=== PATIENT | female | born 1980 | race Caucasian/White ===

== ENCOUNTER 2020-06-06 13:16 | Emergency (ER) | payer OTHER, SELFPAY ==
--- NOTE | ~2020-06-06 | XR_ITS ---
EXAMINATION: XR chest 1V portable INDICATION: Cough TECHNIQUE: Portable AP chest at 1438 hours COMPARISON: None available FINDINGS: Patchy bilateral airspace opacities are present. There is no pleural effusion or pneumothor ax. The cardiomediastinal silhouette is normal. The visualized osseous structures are unremarkable. IMPRESSION: 1. Patchy bilateral airspace opacities, consistent with atelectasis versus pneumonia. Reviewed, dictated and finalized at location A. ROOM ATTENDANT IMPRESSION: 1. Patchy bilateral airspace opacities, consistent with atelectasis versus pneu monia.
[2020-06-06 13:27] VITALS: BP 151/76; PULSE 103; RESP 16; TEMP 36.2; O2SAT 98
--- NOTE | 2020-06-06 14:15 | ED.NAVMDI ---
HPI - Nausea/Vomiting/Diarrhea General Chief complaint: Nausea/Vomiting/Diarrhea Stated complaint: N/V BODY ACHES Time Seen by Provider: 06/06/20 14:15 History of Present Illness HPI Narrative: 39 yo female at 22 weeks presents to the ED for COVI-19 symptoms. She reports that she has had a few days of nausea, vomiting, diarrhea, cough, and chills. She does not have any known sick contacts. No fever, SOB, vaginal bleeding, discharge. Her OB is Dr. Mccarthy. Related Data Home Medications Medication Instructions Recorded Confirmed [id number]-[id number] cap 06/06/20 Allergies Allergy/AdvReac Type Severity Reaction Status Date / Time Penicillins Allergy Mild Hives / Verified 06/06/20 14:40 Red Face amoxicillin Allergy Unknown HIVES Verified 06/06/20 14:40 Review of Systems Review of Systems: All systems reviewed & are unremarkable except as noted in HPI and below Constitutional: Constitutional: Reports chills, Denies fever(s) and Denies weakness ENT: Denies sore throat Cardiovascular: Cardiovascular: Denies chest pain Respiratory: Respiratory: Reports cough and Denies dyspnea Gastrointestinal: Gastrointestinal: Denies abdominal pain, Reports diarrhea, Reports nausea and Reports vomiting Genitourinary: Genitourinary: Denies abnormal vaginal bleeding, Denies dysuria, Denies pelvic pain and Denies vaginal discharge Neurologic: Denies dizziness and Denies weakness [facility] Past Medical History Medical History (Updated 06/06/20 @ 18:41 by Ho Yousif MD) Obesity Social History Social History (Updated 06/06/20 @ 18:41 by Ho Yousif MD) Smoking status: Never smoker Exam Const: General: no acute distress and alert Nutritional Appearance: obese Orientation/consciousness: patient oriented x3 HENMT: Head: normal to inspection Resp: Effort & Inspection: normal respiratory effort Auscultation: clear to auscultation bilaterally Cardio: Rate: tachycardic Rhythm: regular rhythm GI: GI Palp: Yes Soft to palpation and No Tenderness to palpation present (GI) Skin: General skin exam: normal color Neuro: General: patient oriented x3, moves all extremities, no focal motor deficits and CN's II-XI intact bilaterally Speech: normal speech Gait exam (Neuro): Normal gait present Extrem: General: normal to inspection and no edema Course Vital Signs Vital signs: Vital Signs Temperature 36.2 C L 06/06/20 13:27 Pulse Rate 103 H 06/06/20 13:27 Respiratory Rate 16 06/06/20 13:27 Blood Pressure 151/76 H 06/06/20 13:27 Pulse Oximetry 98 06/06/20 13:27 Temperature 36.2 C L 06/06/20 13:27 Pulse Rate 88 06/06/20 16:11 Respiratory Rate 18 06/06/20 16:11 Blood Pressure 149/76 H 06/06/20 16:11 Pulse Oximetry 98 06/06/20 16:11 MDM - Nausea/Vomiting/Diarrhea MDM Narrative Medical decision making narrative: Patchy infiltrates on X-ray concerning for COVID-19. Testing sent. Vitals stable. Feeling improved after treatment. No indication for admission. Ob updated on patient condition. Medical Records Attestation: I reviewed the patient's medical records. Lab Data Attestation: I reviewed the patient's lab results. Result diagrams: 06/06/20 14:33 06/06/20 14:33 Labs: Lab Results 06/06/20 06/06/20 06/06/20 Range/Units 14:33 14:33 14:33 WBC 8.6 (4.5-10.0) K/mm3 RBC 4.07 L (4.2-5.4) M/mm3 Hgb 11.9 L (12.0-15.0) g/dL Hct 36.3 L (37.0-47.0) % MCV 89.2 (80-100) fl MCH 29.2 (26-34) pg MCHC 32.8 (32-36) g/dl RDW 13.5 (11.5-14.5) % Plt Count 251 (150-375) k/mm3 MPV 10.5 H (7.4-10.4) fl Immature Gran % (Auto) 0.3 (0-0.5) % Neut % (Auto) 77.3 H (45.5-73.1) % Lymph % (Auto) 16.7 L (18.3-44.2) % [place] % (Auto) 5.0 (2.6-8.5) % Eos % (Auto) 0.2 (0-4.4) % Baso % (Auto) 0.5 (0.2-1.2) % Lymph # (Auto) 1.44 (0.9-3.2) K/mm3 [place]ole # (Auto) 0.4 (0.1-
[2020-06-06 14:23] VITALS: BP 113/62; BP 130/68; BP 142/66; PULSE 103; PULSE 88; PULSE 93
[2020-06-06 14:32] VITALS: PULSE 108; RESP 19; O2SAT 100
[2020-06-06] MEDS: DEXTROSE 5%/0.45% SOD CHL 1,000 ML 1000 ML IV CONT (14:40)
[2020-06-06] MEDS: METOCLOPRAMIDE HCL INJ 10 MG/2 ML VIAL IV PUSH (14:40)
[2020-06-06 14:49] LABS: Add Urine Microscopic? YES; Appearance Urine Clear (Clear); Bacteria Urine Trace /hpf; Bilirubin Urine Negative (Negative); Blood Urine Negative (Negative); Color Urine Yellow (Yellow); Glucose Urine UA Negative (Negative); Ketones Urine 1+ mg/dL (Negative); Leukocyte Esterase Ur Negative LEU/UL (Negative); Mucus Urine Moderate /lpf; Nitrate Urine Negative (Negative); Protein Urine 1+ mg/dL (Negative); RBC Urine 0-2 /hpf (0-2); Specific Grav Ur 1.025 (1.001-1.035); Squamous Epithelial Cell Urine Many /hpf (Few); Urobilinogen Urine Negative mg/dL (<2.0); WBC Urine 0-3 /hpf
[2020-06-06 14:50] LABS: Basophils Percent Auto 0.5 % (0.2-1.2); Eosinophils Percent Auto 0.2 % (0-4.4); Hematocrit 36.3 % (37.0-47.0); Hemoglobin 11.9 g/dL (12.0-15.0); Immature Granulocyte Absolute 0.03 K/mm3 (0.00-0.031); Immature Granulocyte Percent A 0.3 % (0-0.5); Lymphocytes Absolute Auto 1.44 K/mm3 (0.9-3.2); Lymphocytes Percent Auto 16.7 % (18.3-44.2); Mean Corpuscular HGB Conc 32.8 g/dl (32-36); Mean Corpuscular Hemoglobin 29.2 pg (26-34); Mean Corpuscular Volume 89.2 fl (80-100); Mean Platelet Volume 10.5 fl (7.4-10.4); Monocytes Absolute Auto 0.4 K/mm3 (0.1-0.6); Neutrophils Absolute Auto 6.7 K/mm3 (1.3-6.7); Neutrophils Percent Auto 77.3 % (45.5-73.1); Platelet Count Result 251 k/mm3 (150-375); Red Blood Count 4.07 M/mm3 (4.2-5.4); Red Cell Distribution Width 13.5 % (11.5-14.5); White Blood Count 8.6 K/mm3 (4.5-10.0)
[2020-06-06 14:59] LABS: Alanine Aminotransferase 15 U/L (4-35); Albumin Level 3.4 g/dL (3.5-5.1); Alkaline Phosphatase 69 U/L (38-126); Anion Gap 4 mmol/L (8-16); Aspartate Amino Transferase 18 U/L (14-36); Bilirubin,Total 0.3 mg/dL (0.2-1.3); Blood Urea Nitrogen 7 mg/dL (7-17); Calcium 8.6 mg/dL (8.4-10.2); Carbon Dioxide 26 mmol/L (22-30); Chloride 104 mmol/L (98-107); Estimated CRCL calculation 154 ml/min; Estimated Glomerular Filt Rate > 60; Glucose 117 mg/dL (65-105); Lipase 54 U/L (23-300); Potassium 3.7 mmol/L (3.4-5.0); Sodium 134 mmol/L (137-145)
[2020-06-06 15:49] VITALS: BP 133/62; PULSE 88; RESP 15; O2SAT 99
[2020-06-06 16:11] VITALS: BP 149/76; PULSE 88; RESP 18; O2SAT 98
[2020-06-07 20:47] LABS: SARS-CoV-2 RNA PCR Negative
== END 2020-06-06 16:15 | disposition home or self-care (01) ==
PROVIDERS: Emergency Provider Emergency Medicine
DX: O21.9 Vomiting of pregnancy, unspecified (principal); Z20.828 Contact with and (suspected) exposure to other viral communicable diseases; O99.212 Obesity complicating pregnancy, second trimester; E66.9 Obesity, unspecified; Z3A.22 22 weeks gestation of pregnancy; R91.8 Other nonspecific abnormal finding of lung field
CPT/HCPCS: 36415; 71045; 80053; 81001; 81025; 83690; 85025; 96361; 96374; 99284; C9803; J2765; U0003

== ENCOUNTER 2020-09-04 11:27 | Outpatient (RCR) | payer OTHER, SELFPAY ==
[2020-09-04 11:59] VITALS: BP 138/67; PULSE 92
== END 2020-09-21 07:38 | disposition home or self-care (01) ==
LOC: ANHOBOP 11:27
PROVIDERS: Visit Provider Obstetrics & Gynecology
DX: O09.513 Supervision of elderly primigravida, third trimester (principal); O26.03 Excessive weight gain in pregnancy, third trimester; O26.893 Other specified pregnancy related conditions, third trimester; R03.0 Elevated blood-pressure reading, without diagnosis of hypertension; Z3A.34 34 weeks gestation of pregnancy
CPT/HCPCS: 59025

== ENCOUNTER 2020-09-15 11:21 | Outpatient (CLI) | payer OTHER, SELFPAY ==
[2020-09-15] VITALS (9 sets, daily range): BP systolic 126–159; BP diastolic 73–93; PULSE 89–106
[2020-09-15 12:15] LABS: Basophils Percent Auto 0.6 % (0.2-1.2); Eosinophils Percent Auto 0.4 % (0-4.4); Hematocrit 30.7 % (37.0-47.0); Hemoglobin 9.6 g/dL (12.0-15.0); Immature Granulocyte Absolute 0.03 K/mm3 (0.00-0.031); Immature Granulocyte Percent A 0.4 % (0-0.5); Lymphocytes Absolute Auto 1.17 K/mm3 (0.9-3.2); Lymphocytes Percent Auto 16.8 % (18.3-44.2); Mean Corpuscular HGB Conc 31.3 g/dl (32-36); Mean Corpuscular Hemoglobin 26.7 pg (26-34); Mean Corpuscular Volume 85.3 fl (80-100); Mean Platelet Volume 10.5 fl (7.4-10.4); Monocytes Absolute Auto 0.5 K/mm3 (0.1-0.6); Monocytes Percent Auto 7.6 % (2.6-8.5); Neutrophils Absolute Auto 5.2 K/mm3 (1.3-6.7); Neutrophils Percent Auto 74.2 % (45.5-73.1); Platelet Count Result 225 k/mm3 (150-375); Red Cell Distribution Width 13.7 % (11.5-14.5)
[2020-09-15 12:22] LABS: Total Protein Urine Random 8 mg/dL; Ur Ttl Prot Creatinine Ratio 0.05 mg/mg (0-0.20)
[2020-09-15 12:25] LABS: Alanine Aminotransferase 12 U/L (4-35); Albumin Level 3.3 g/dL (3.5-5.1); Alkaline Phosphatase 87 U/L (38-126); Anion Gap 2 mmol/L (8-16); Aspartate Amino Transferase 20 U/L (14-36); Bilirubin,Total < 0.1 mg/dL (0.2-1.3); Blood Urea Nitrogen 8 mg/dL (7-17); Calcium 8.3 mg/dL (8.4-10.2); Carbon Dioxide 25 mmol/L (22-30); Chloride 108 mmol/L (98-107); Estimated Glomerular Filt Rate > 60; Glucose 84 mg/dL (65-105); Potassium 4.2 mmol/L (3.4-5.0); Sodium 135 mmol/L (137-145); Uric Acid 4.1 mg/dL (2.5-7.5)
[2020-09-15 12:35] LABS: Add Urine Microscopic? YES; Appearance Urine Cloudy (Clear); Bacteria Urine Trace /hpf; Bilirubin Urine Negative (Negative); Blood Urine Negative (Negative); Color Urine Yellow (Yellow); Glucose Urine UA Negative (Negative); Ketones Urine Negative (Negative); Leukocyte Esterase Ur Negative LEU/UL (NEGATIVE); Mucus Urine Few /lpf; Nitrate Urine Negative (Negative); Protein Urine 2+ mg/dL (Negative); RBC Urine 0-2 /hpf (0-2); Specific Grav Ur 1.029 (1.001-1.035); Squamous Epithelial Cell Urine Many /hpf (Few); Urobilinogen Urine Negative mg/dL (<2.0); WBC Urine 0-3 /hpf (0-3)
--- NOTE | 2020-09-15 15:08 | PC.NURSE ---
called Marcie Lindo CNM updated BP. discharge order received with preeclampsia precaution.
== END 2020-09-15 15:08 | disposition home or self-care (01) ==
LOC: ANHOBOP 11:26 → ANHOBPP 11:27
PROVIDERS: Advanced Practice Midwife; Visit Provider Obstetrics & Gynecology
DX: O13.9 Gestational [pregnancy-induced] hypertension without significant proteinuria, unspecified trimester (principal); Z3A.00 Weeks of gestation of pregnancy not specified
CPT/HCPCS: 36415; 59025; 80053; 81001; 82570; 84156; 84550; 85025; 87086; 87088; 99199

== ENCOUNTER 2020-09-18 12:22 | Outpatient (CLI) | payer OTHER, SELFPAY ==
[2020-09-18 12:50] VITALS: RESP 20; TEMP 37.1
[2020-09-18 12:58] VITALS: BP 128/64; PULSE 91
[2020-09-18 13:31] LABS: Basophils Percent Auto 0.4 % (0.2-1.2); Eosinophils Percent Auto 0.4 % (0-4.4); Hematocrit 31.3 % (37.0-47.0); Hemoglobin 9.9 g/dL (12.0-15.0); Immature Granulocyte Absolute 0.02 K/mm3 (0.00-0.031); Immature Granulocyte Percent A 0.3 % (0-0.5); Lymphocytes Absolute Auto 1.08 K/mm3 (0.9-3.2); Lymphocytes Percent Auto 15.9 % (18.3-44.2); Mean Corpuscular HGB Conc 31.6 g/dl (32-36); Mean Corpuscular Hemoglobin 26.9 pg (26-34); Mean Corpuscular Volume 85.1 fl (80-100); Mean Platelet Volume 10.2 fl (7.4-10.4); Monocytes Absolute Auto 0.6 K/mm3 (0.1-0.6); Monocytes Percent Auto 8.5 % (2.6-8.5); Neutrophils Absolute Auto 5.1 K/mm3 (1.3-6.7); Neutrophils Percent Auto 74.5 % (45.5-73.1); Platelet Count Result 232 k/mm3 (150-375); Red Blood Count 3.68 M/mm3 (4.2-5.4); Red Cell Distribution Width 13.8 % (11.5-14.5); White Blood Count 6.8 K/mm3 (4.5-10.0)
[2020-09-18 13:43] LABS: Alanine Aminotransferase 12 U/L (4-35); Albumin Level 3.1 g/dL (3.5-5.1); Alkaline Phosphatase 94 U/L (38-126); Anion Gap 3 mmol/L (8-16); Aspartate Amino Transferase 20 U/L (14-36); Bilirubin,Total 0.2 mg/dL (0.2-1.3); Blood Urea Nitrogen 8 mg/dL (7-17); Calcium 8.1 mg/dL (8.4-10.2); Carbon Dioxide 26 mmol/L (22-30); Chloride 106 mmol/L (98-107); Estimated Glomerular Filt Rate > 60; Glucose 83 mg/dL (65-105); Potassium 4.4 mmol/L (3.4-5.0); Sodium 135 mmol/L (137-145); Uric Acid 4.1 mg/dL (2.5-7.5)
[2020-09-18 13:45] LABS: Add Urine Microscopic? YES; Appearance Urine Cloudy (Clear); Bacteria Urine Trace /hpf; Bilirubin Urine Negative (Negative); Blood Urine Negative (Negative); Color Urine Yellow (Yellow); Glucose Urine UA Negative (Negative); Ketones Urine Negative (Negative); Leukocyte Esterase Ur Negative LEU/UL (NEGATIVE); Mucus Urine Rare /lpf; Nitrate Urine Negative (Negative); Protein Urine 1+ mg/dL (Negative); RBC Urine 0-2 /hpf (0-2); Specific Grav Ur 1.023 (1.001-1.035); Squamous Epithelial Cell Urine Few /hpf (Few); Urobilinogen Urine Negative mg/dL (<2.0); WBC Urine 0-3 /hpf (0-3)
[2020-09-18 14:18] LABS: Creatinine Urine 106.7 mg/dL; Total Protein Urine Random 11 mg/dL
[2020-09-18] MEDS: ACETAMINOPHEN 500 MG TABLET 1000 MG PO (14:38)
[2020-09-18 14:42] VITALS: BMI 54.4
[2020-09-18 14:48] VITALS: BP 138/73; PULSE 86
== END 2020-09-18 15:25 | disposition home or self-care (01) ==
LOC: ANHOBOP 12:27 → ANHOBPP 12:28
PROVIDERS: Advanced Practice Midwife; Visit Provider Obstetrics & Gynecology
DX: O13.9 Gestational [pregnancy-induced] hypertension without significant proteinuria, unspecified trimester (principal); Z3A.00 Weeks of gestation of pregnancy not specified
CPT/HCPCS: 36415; 59025; 80053; 81001; 82570; 84156; 84550; 85025; 87077; 87086; 87088; 99199; A9270

== ENCOUNTER 2020-09-19 18:27 | Inpatient (IN) | payer OTHER, SELFPAY ==
[2020-09-19 20:08] LABS: Basophils Percent Auto 0.4 % (0.2-1.2); Eosinophils Percent Auto 0.3 % (0-4.4); Hematocrit 32.8 % (37.0-47.0); Hemoglobin 10.2 g/dL (12.0-15.0); Immature Granulocyte Absolute 0.02 K/mm3 (0.00-0.031); Immature Granulocyte Percent A 0.3 % (0-0.5); Lymphocytes Absolute Auto 1.59 K/mm3 (0.9-3.2); Lymphocytes Percent Auto 20.9 % (18.3-44.2); Mean Corpuscular HGB Conc 31.1 g/dl (32-36); Mean Corpuscular Hemoglobin 26.8 pg (26-34); Mean Corpuscular Volume 86.1 fl (80-100); Mean Platelet Volume 10.3 fl (7.4-10.4); Monocytes Absolute Auto 0.7 K/mm3 (0.1-0.6); Monocytes Percent Auto 9.6 % (2.6-8.5); Neutrophils Absolute Auto 5.2 K/mm3 (1.3-6.7); Neutrophils Percent Auto 68.5 % (45.5-73.1); Platelet Count Result 235 k/mm3 (150-375); Red Blood Count 3.81 M/mm3 (4.2-5.4); Red Cell Distribution Width 13.9 % (11.5-14.5); White Blood Count 7.6 K/mm3 (4.5-10.0)
[2020-09-19 20:18] LABS: Alanine Aminotransferase 12 U/L (4-35); Albumin Level 3.3 g/dL (3.5-5.1); Alkaline Phosphatase 95 U/L (38-126); Anion Gap 3 mmol/L (8-16); Aspartate Amino Transferase 19 U/L (14-36); Bilirubin,Total 0.1 mg/dL (0.2-1.3); Blood Urea Nitrogen 11 mg/dL (7-17); Calcium 8.9 mg/dL (8.4-10.2); Carbon Dioxide 26 mmol/L (22-30); Chloride 106 mmol/L (98-107); Estimated Glomerular Filt Rate > 60; Glucose 83 mg/dL (65-105); Sodium 135 mmol/L (137-145); Uric Acid 3.5 mg/dL (2.5-7.5)
[2020-09-19 20:19] LABS: Potassium 4.3 mmol/L (3.4-5.0)
[2020-09-19 20:31] VITALS: BP 165/102; PULSE 91
[2020-09-19 20:46] VITALS: BP 151/64; PULSE 86
[2020-09-19 21:03] VITALS: BMI 54.6
--- NOTE | 2020-09-19 21:05 | OBADM ---
This patient, Madhavi Stauffer, admitted to the OB room Labor/Delivery/Recovery 106 for observation. Patient/family oriented to hospital policies and general routines including ID bracelet, bed and alarms, visiting hours, pain management, procedures, bathroom and other care routines, personal items, smoking policy, room service/diet, and visiting hours. Patient/Family are encouraged to report perceived risks to care and to ask questions if they do not understand what they are told or what they should do.
[2020-09-19 22:55] VITALS: BP 137/54; PULSE 90
[2020-09-19 23:00] VITALS: TEMP 36.6
[2020-09-20] VITALS (125 sets, daily range): BP systolic 85–165; BP diastolic 36–112; PULSE 30–112; RESP 16–18; TEMP 36.2–36.8; O2SAT 80–100; BMI 54.6
--- NOTE | 2020-09-20 07:31 | PM.IMHP ---
H&P: HPI History of Present Illness Date/Time: 09/20/20 07:31 who presents with headache and seeing spots in her vision. Bp occasional severe range, mild swelling, no epigastric complaints Chief Complaint: headache Review of Systems Review of Systems: All systems reviewed & are unremarkable except as noted in HPI and below [facility] Past Medical History Medical History (Updated 06/07/20 @ 00:00 by Narcisa Mai) Obesity Family History Family History (Updated 09/15/20 @ 13:23 by Leslie Navarro RN) Mother Diabetes mellitus High cholesterol Father Lung cancer Sibling Breast cancer Other Patient's father is Social History Social History (Updated 06/06/20 @ 18:41 by Ho Yousif MD) Smoking status: Never smoker Substance use: never Spiritual care concerns: No Meds Home Medications and Allergies Home Medications Medication Instructions Recorded Confirmed Type prenat.vits,desirae,drn-plir-ijvtc 1 tablet PO DAILY 09/15/20 09/19/20 History [ #2] Allergies Allergy/AdvReac Type Severity Reaction Status Date / Time Penicillins Allergy Mild Hives / Verified 09/15/20 13:19 Red Face amoxicillin Allergy Unknown HIVES Verified 09/15/20 13:19 Vital Signs Vital Signs - 24 hr 09/19/20 20:31 09/19/20 20:46 09/19/20 22:55 Temperature Pulse Rate 91 86 90 Blood Pressure 165/102 H 151/64 H 137/54 L 09/19/20 23:00 09/20/20 03:00 09/20/20 03:07 Temperature 36.6 C 36.6 C Pulse Rate 82 Blood Pressure 153/61 H 09/20/20 06:27 09/20/20 06:31 09/20/20 06:40 Temperature 36.4 C Pulse Rate 90 95 Blood Pressure 145/68 H 139/73 09/20/20 06:46 09/20/20 07:01 09/20/20 07:16 Temperature Pulse Rate 82 73 84 Blood Pressure 86/42 L 125/76 165/102 H Exam Const: General: cooperative Nutritional Appearance: obese Resp: Effort & Inspection: normal respiratory effort Skin: General skin exam: normal color Neuro: General: patient oriented x3 Psych: Affect: normal affect Attitude: cooperative Thought content: Yes Normal thought content present Insight: Good insight present (Psych) Judgement: Good judgement present (Psych) H&P: Results Labs Labs: Short CBC 09/19/20 Range/Units 20:02 WBC 7.6 (4.5-10.0) K/mm3 Hgb 10.2 L (12.0-15.0) g/dL Hct 32.8 L (37.0-47.0) % Plt Count 235 (150-375) k/mm3 BMP 09/19/20 20:02 Sodium 135 L Potassium 4.3 Chloride 106 Carbon Dioxide 26 BUN 11 Creatinine 0.60 L Glucose 83 Calcium 8.9 Liver Function 09/19/20 Range/Units 20:02 Total Bilirubin 0.1 L (0.2-1.3) mg/dL AST 19 (14-36) U/L ALT 12 (4-35) U/L Alkaline Phosphatase 95 (38-126) U/L Albumin 3.3 L (3.5-5.1) g/dL Assessment and Plan Additional Plan at 36.5 weeks gestation preeclampsia, magnesium sulfate pending blood pressures plan MIL with cervadil
--- NOTE | 2020-09-20 07:45 | LDADM ---
This patient, Madhavi Stauffer, was admitted to Labor/Delivery/Recovery 106 on 09/20/20 at 07:45. Plans for labor, pain management and were discussed with patient. Patient/family oriented to hospital policies and general routines including ID bracelet, bed and alarms, visiting hours, pain management, procedures, bathroom and other care routines, personal items, smoking policy, room service/diet and guest tray routines, infant security routines, and visiting hours. Patient/Family are encouraged to report perceived risks to care and to ask questions if they do not understand what they are told or what they should do. See OBIX for further documentation.
[2020-09-20] MEDS: DINOPROSTONE 10 MG VAG INSERT VAGINAL (09:09)
[2020-09-20] MEDS: LACTATED RINGERS 1,000 ML 125 ML IV CONT ×2 (10:28→14:56)
--- NOTE | 2020-09-20 14:33 | WPDANESEPP ---
Anes - Eval Pre Procedure Procedure: labor epidural Date/Time: 09/20/20 14:33 Preop Diagnosis: labor pain Pre Op Diagnosis: Elevated B/P Patient Data Age: 40 Gender: F Height: 5 ft 1 in Weight: 131 kg Last Vital Signs Temp 36.8 C 09/20/20 13:38 Pulse 87 09/20/20 14:02 BP 125/98 H 09/20/20 14:31 Allergies Allergy/AdvReac Type Severity Reaction Status Date / Time Penicillins Allergy Mild Hives / Verified 09/15/20 13:19 Red Face amoxicillin Allergy Unknown HIVES Verified 09/15/20 13:19 Home Medications Medication Instructions Recorded Confirmed Type prenat.vits,desirae,vke-cvkm-qioib 1 tablet PO DAILY 09/15/20 09/19/20 History [ #2] Laboratory Tests 09/19/20 09/19/20 09/20/20 20:02 20:02 10:34 WBC 7.6 K/mm3 K/mm3 (4.5-10.0) RBC 3.81 M/mm3 L M/mm3 (4.2-5.4) Hgb 10.2 g/dL L g/dL (12.0-15.0) Hct 32.8 % L % (37.0-47.0) MCV 86.1 fl fl (80-100) MCH 26.8 pg pg (26-34) MCHC 31.1 g/dl L g/dl (32-36) RDW 13.9 % % (11.5-14.5) Plt Count 235 k/mm3 k/mm3 (150-375) MPV 10.3 fl fl (7.4-10.4) Immature Gran % (Auto) 0.3 % % (0-0.5) Neut % (Auto) 68.5 % % (45.5-73.1) Lymph % (Auto) 20.9 % % (18.3-44.2) Parker % (Auto) 9.6 % H % (2.6-8.5) Eos % (Auto) 0.3 % % (0-4.4) Baso % (Auto) 0.4 % % (0.2-1.2) Lymph # (Auto) 1.59 K/mm3 K/mm3 (0.9-3.2) Parker # (Auto) 0.7 K/mm3 H K/mm3 (0.1-0.6) Eos # (Auto) 0.0 K/mm3 K/mm3 (0-0.3) Baso # (Auto) 0.0 K/mm3 K/mm3 (0.0-0.1) Abs Immat Gran (auto) 0.02 K/mm3 K/mm3 (0.00-0.031) Absolute Neuts (auto) 5.2 K/mm3 K/mm3 (1.3-6.7) Absolute Nucleated RBC 0.0 K/mm3 K/mm3 (0.0-0.012) Nucleated RBC % 0.0 % % (0.0-0.2) Sodium 135 mmol/L L mmol/L (137-145) Potassium 4.3 mmol/L mmol/L (3.4-5.0) Chloride 106 mmol/L mmol/L (98-107) Carbon Dioxide 26 mmol/L mmol/L (22-30) Anion Gap 3 mmol/L L mmol/L (8-16) BUN 11 mg/dL mg/dL (7-17) Creatinine 0.60 mg/dL L mg/dL (0.7-1.0) Estim Creat Clear Calc Not Reportable Estimated GFR > 60 (59 - ) Glucose 83 mg/dL mg/dL (65-105) Uric Acid 3.5 mg/dL mg/dL (2.5-7.5) Calcium 8.9 mg/dL mg/dL (8.4-10.2) Total Bilirubin 0.1 mg/dL L mg/dL (0.2-1.3) AST 19 U/L U/L (14-36) ALT 12 U/L U/L (4-35) Alkaline Phosphatase 95 U/L U/L (38-126) Total Protein 7.0 g/dL g/dL (6.3-8.2) Albumin 3.3 g/dL L g/dL (3.5-5.1) RPR Pending Blood Type Antibody Screen 09/20/20 10:34 WBC RBC Hgb Hct MCV MCH MCHC RDW Plt Count MPV Immature Gran % (Auto) Neut % (Auto) Lymph % (Auto) Parker % (Auto) Eos % (Auto) Baso % (Auto) Lymph # (Auto) Parker # (Auto) Eos # (Auto) Baso # (Auto) Abs Immat Gran (auto) Absolute Neuts (auto) Absolute Nucleated RBC Nucleated RBC % Sodium Potassium Chloride Carbon Dioxide Anion Gap BUN Creatinine Estim Creat Clear Calc Estimated GFR Glucose Uric Acid Calcium Total Bilirubin AST ALT Alkaline Phosphatase Total Protein Albumin RPR Blood Type O Positive Antibody Screen Negative Patient hx anesthesia problems: none Family hx anesthesia problems: none [facility] Past Medical History Medical History (Updated 06/07/20 @ 00:00 by Narcisa Mai) Obesity Family History Family History (Reviewed 09/20/20 @ 11:37 by Indra Jo,
[2020-09-20] MEDS: MAGNESIUM SULF 4 GM/WATER100ML 4 GM/100 ML BAG IVPB (15:42)
--- NOTE | 2020-09-20 16:58 | PM.OBPNVD ---
OB - PN: Subj Subjective Date/time seen: 09/20/20 16:58 CNM at bs, failure to descend after multiple pushing efforts, heart rate category 2, Dr Mccarthy at bs and decision made for section. OB - PN: Obj Data Labs CBC & Chem 7: 09/19/20 20:02 09/19/20 20:02 Labs: Laboratory Results - last 24 hr 09/19/20 09/19/20 09/20/20 20:02 20:02 10:34 WBC 7.6 RBC 3.81 L Hgb 10.2 L Hct 32.8 L MCV 86.1 MCH 26.8 MCHC 31.1 L RDW 13.9 Plt Count 235 MPV 10.3 Immature Gran % (Auto) 0.3 Neut % (Auto) 68.5 Lymph % (Auto) 20.9 [place] % (Auto) 9.6 H Eos % (Auto) 0.3 Baso % (Auto) 0.4 Lymph # (Auto) 1.59 [place] # (Auto) 0.7 H Eos # (Auto) 0.0 Baso # (Auto) 0.0 Abs Immat Gran (auto) 0.02 Absolute Neuts (auto) 5.2 Absolute Nucleated RBC 0.0 Nucleated RBC % 0.0 Sodium 135 L Potassium 4.3 Chloride 106 Carbon Dioxide 26 Anion Gap 3 L BUN 11 Creatinine 0.60 L Estim Creat Clear Calc Not Reportable Estimated GFR > 60 Glucose 83 Uric Acid 3.5 Calcium 8.9 Total Bilirubin 0.1 L AST 19 ALT 12 Alkaline Phosphatase 95 Total Protein 7.0 Albumin 3.3 L Blood Type O Positive Antibody Screen Negative OB - PN A/P Time Spent With Patient Time: Total time spent is greater than 50% in coordination of care (as documented) at patient's floor/unit and/or counseling patient:
--- NOTE | 2020-09-20 19:03 | P.OP_ITS ---
Procedure Note - Detailed Date of procedure: 09/20/20 Pre-op diagnosis: Elevated B/P Nonreassuring heart tones, failure to descend, Unwanted fertility Post-op diagnosis: same (Extension of uterine incision) Procedure performed: Repeat low-transverse delivery, tubal ligation Description of procedure: The patient was taken the operating room. She was prepped and draped in the dorsal supine position with leftward tilt after induction of spinal anesthetic. When anesthesia was found to be adequate a low- transverse skin incision was made and carried down to the level the fascia with the knife. The fascial incision was made at the midline with a scalpel. The fascial incision was extended laterally with Paiz scissors. The fascia was tented upward superior and inferior with Pete clamps. The rectus muscles were dissected off bluntly. The rectus muscles at the midline. The preperitoneal fat was dissected bluntly at the superior aspect of the separate the rectus muscles. The peritoneal cavity was entered bluntly in the same area. The peritoneal incision was extended superior and inferior with good position of bladder. Bladder blade was inserted. A low-transverse incision was made on the uterus with the scalpel. It was carried down the level of the amniotic cavity with a knife. The amniotic cavity bluntly. The uterine incision was made laterally with blunt traction. The was delivered. The cord was clamped and cut. The infant was handed off to waiting pediatric staff. Cord bloods were obtained. The placenta was removed manually. The uterus was exteriorized. Uterus cleared of all clots and debris. Uterus closed in 0 Vicryl in a running locked fashion. The uterus seizure extended down behind the bladder and into the vagina. There were numerous fragile dilated veins in this area, the ureter was observed and found to be lateral of the affected area. Numerous sutures were used in the inferior lateral aspect of the uterus and vagina to make it hemostatic. A prolonged. Top was required to make the lateral aspect of the inferior uterus and anterior uterus hemostatic. An imbricating layer of 0 Vicryl was also placed on the to bolster the closure. Fallopian tube was grasped in the ampullary region with a Joss. It was raised away from the accompanying vein. A window was created in the broad ligament in this area of the tube. 0 Vicryl was used to ligate the proximal distal ends of the skeletonize region of the tube. The segment of the tube was resected with scissors. The cut surfaces were cauterized. On the contralateral side the procedure was performed identically. The uterus was returned to the abdomen. The gutters were cleared of all clots and debris. The fascia was closed 0 Vicryl in a running fashion. Subcutaneous tissue was irrigated and bleeding areas were cauterized. The skin was closed with subcuticular absorbable kitty. The incision was covered with derma rodriguez. The patient tolerated the procedure well. She was taken recovery room stable condition. Sponge, lap, needle counts were correct x2. Anesthesia: spinal Surgeon: Vanessa Mccarthy MD Estimated blood loss (mL): 1,250 Drains: No Packing: No Pathology: none sent Complications: No immediate complications Condition: stable Disposition: floor Findings: Normal maternal anatomy. Average size with normal Apgars.
[2020-09-20] MEDS: OXYTOCIN 30 UNITS/NS 500 ML 30 UNITS/500 ML BAG 125 UNITS IV CONT (19:15)
[2020-09-20 19:39] LABS: Hematocrit 29.6 % (37.0-47.0); Hemoglobin 9.4 g/dL (12.0-15.0); Mean Corpuscular HGB Conc 31.8 g/dl (32-36); Mean Corpuscular Volume 85.1 fl (80-100); Mean Platelet Volume 10.1 fl (7.4-10.4); Platelet Count Result 213 k/mm3 (150-375); Red Blood Count 3.48 M/mm3 (4.2-5.4); White Blood Count 15.2 K/mm3 (4.5-10.0)
[2020-09-20] MEDS: fentaNYL CITRATE INJ (*CRX) 100 MCG/2 ML VIAL 50 MCG IV PUSH (19:43)
--- NOTE | 2020-09-20 21:58 | PC.NURSE ---
pt requested to get 50mcg of fentanyl instead of 100 mcg at this time. 50 mcg of fentanyl given at 1942. Remaining fentanyl in vial to be wasted.
--- NOTE | 2020-09-20 22:16 | OBPPTRN ---
Patient transferred to post room #285 via stretcher. Support person present. Oriented to unit, room, information board, rooming in, admission packet and security measures. Patient verbalizes understanding.
[2020-09-20] MEDS: KETOROLAC 30 MG/ML VIAL (*BKC) IV PUSH (22:42)
[2020-09-21] MEDS: DEXTROSE 5%/0.45% SOD CHL 1,000 ML 125 ML IV CONT (00:30)
[2020-09-21] MEDS: HYDROcodone/acetaminophen (*CRX) 5-325 MG TABLET 1 TAB PO ×4 (02:55→17:49)
[2020-09-21 03:00] VITALS: BP 120/70; PULSE 98; RESP 16; TEMP 37; O2SAT 98
[2020-09-21 05:34] LABS: Basophils Percent Auto 0.4 % (0.2-1.2); Eosinophils Percent Auto 0.1 % (0-4.4); Hematocrit 24.5 % (37.0-47.0); Hemoglobin 7.8 g/dL (12.0-15.0); Immature Granulocyte Absolute 0.04 K/mm3 (0.00-0.031); Immature Granulocyte Percent A 0.4 % (0-0.5); Lymphocytes Absolute Auto 1.09 K/mm3 (0.9-3.2); Lymphocytes Percent Auto 11.2 % (18.3-44.2); Mean Corpuscular HGB Conc 31.8 g/dl (32-36); Mean Corpuscular Hemoglobin 26.9 pg (26-34); Mean Corpuscular Volume 84.5 fl (80-100); Mean Platelet Volume 10.2 fl (7.4-10.4); Monocytes Absolute Auto 0.7 K/mm3 (0.1-0.6); Monocytes Percent Auto 6.9 % (2.6-8.5); Neutrophils Absolute Auto 7.9 K/mm3 (1.3-6.7); Platelet Count Result 185 k/mm3 (150-375); Red Cell Distribution Width 14.1 % (11.5-14.5); White Blood Count 9.7 K/mm3 (4.5-10.0)
[2020-09-21 06:39] LABS: Rapid Plasma Reagin Non-Reactive (NonReactive)
--- NOTE | 2020-09-21 07:30 | PC.NURSE ---
Consult with pt., mother reports infant has been in Level II. Infant came to mother at approximately 0430 this morning. Mother states is latched and nursed for 15 minutes. Infant is now sleepy and making no effort to latch. Discussed the early 36 5/7 week , establishing may have its own unique set of circumstances due to their immaturity. infants may be less alert, have less stamina and may have issues with latch, suck and swallow. With the possible inability to have a vigorous suck swallow, infants may not be adequately stimulating mother and/or able to have adequate milk transfer effecting output, hydration, weight loss and jaundice. Pumping should be considered for additional stimulation and to offer EBM as part of supplement if needed. Mother reports her last child was delivered at 34 weeks and breastfed well. Reviewed infant feeding cues, frequencies, duration of feedings, feeding elimination flow sheet, and signs of adequate intake. Demonstrated stimulation techniques to wake infant for feeding. Assisted with to breast. Reviewed positioning/alignment cross cradle, holding breast in U hold and guided asymmetrical latch on. Infant was sleepy and made no effort to latch. Discussed ICP order of 10-15mls supplementation after each and/or attempt. Mother reports she is comfortable with supplementation as ordered. Mother has a pump at bedside and reports she has pumped without difficulties/discomfort and denies need for assistance with pumping. Her sister is at bedside assisting pt. with feeding.
[2020-09-21] MEDS: MULTIVIT/MIN/PREN/FOL AC/IRON TABLET 1 TAB PO (07:53)
[2020-09-21] MEDS: POLYSACCHARIDE IRON COMPLEX 150 MG CAPSULE PO ×2 (07:53→17:49)
--- NOTE | 2020-09-21 07:53 | WPDANLDPN2 ---
Anes-Prog Note L&D Date/Time: 09/21/20 07:53 Comfortable throughout: section Neuraxial method: epidural Epidural/Spinal procedure site: clean & non-tender Neuro status: Neuro function grossly intact. Cardiovascular status: normal Respiratory status: normal Airway patency: baseline Mental status: baseline Post-Op hydration status: normal Vital Signs: Last Vital Signs Temp 37.0 C 09/21/20 03:00 Pulse 98 09/21/20 03:00 Resp 16 09/21/20 03:00 BP 120/70 09/21/20 03:00 Pulse Ox 98 09/21/20 03:00 Pain score (VAS): 1 I/O: Intake & Output 09/20/20 09/20/20 09/21/20 15:59 23:59 07:59 Intake Total 1250 800 Output Total 1620 250 Balance 1250 -1620 550 Post-procedural complaints: none Patient feedback: Patient satisfied with anesthetic care.
--- NOTE | 2020-09-21 07:53 | WPDANLDNPN2 ---
Anes-Prog Note L&D-Neuraxial Date/Time: 09/21/20 07:53 Neuraxial medications: epidural PF morphine Opiod-related complaints: pruritis mild, no treatment Patient feedback: Patient satisfied with post-operative pain management.
[2020-09-21] MEDS: DOCUSATE SODIUM 100 MG CAPSULE PO ×2 (07:54→17:49)
[2020-09-21] MEDS: IBUPROFEN 600 MG TABLET PO ×2 (07:55→14:11)
[2020-09-21] MEDS: SIMETHICONE 80 MG TAB.CHEW PO ×2 (07:56→14:12)
[2020-09-21 08:00] VITALS: BP 116/67; PULSE 106; PULSE 94; RESP 14; RESP 18; TEMP 37.3; O2SAT 98
--- NOTE | 2020-09-21 08:28 | PM.OBPNVD ---
OB - PN: Subj Subjective Date/time seen: 09/21/20 08:28 Patient comments: no complaints, pain well controlled, tolerating diet and flatus present OB - PN: Obj Data Labs CBC & Chem 7: 09/21/20 05:20 09/19/20 20:02 Labs: Laboratory Results - last 24 hr 09/20/20 09/20/20 09/20/20 10:34 10:34 19:33 WBC 15.2 H RBC 3.48 L Hgb 9.4 L Hct 29.6 L MCV 85.1 MCH 27.0 MCHC 31.8 L RDW 14.0 Plt Count 213 MPV 10.1 Immature Gran % (Auto) Neut % (Auto) Lymph % (Auto) [place] % (Auto) Eos % (Auto) Baso % (Auto) Lymph # (Auto) [place] # (Auto) Eos # (Auto) Baso # (Auto) Abs Immat Gran (auto) Absolute Neuts (auto) Absolute Nucleated RBC Nucleated RBC % RPR Non-reactive Blood Type O Positive Antibody Screen Negative Crossmatch See Detail 09/21/20 05:20 WBC 9.7 RBC 2.90 L Hgb 7.8 L Hct 24.5 L MCV 84.5 MCH 26.9 MCHC 31.8 L RDW 14.1 Plt Count 185 MPV 10.2 Immature Gran % (Auto) 0.4 Neut % (Auto) 81.0 H Lymph % (Auto) 11.2 L [place] % (Auto) 6.9 Eos % (Auto) 0.1 Baso % (Auto) 0.4 Lymph # (Auto) 1.09 [place] # (Auto) 0.7 H Eos # (Auto) 0.0 Baso # (Auto) 0.0 Abs Immat Gran (auto) 0.04 H Absolute Neuts (auto) 7.9 H Absolute Nucleated RBC 0.0 Nucleated RBC % 0.0 RPR Blood Type Antibody Screen Crossmatch OB - PN A/P Plan day: 1 Comments: Post Op LTCS - no problems, routine recovery Time Spent With Patient Time: Total time spent is greater than 50% in coordination of care (as documented) at patient's floor/unit and/or counseling patient: Exam Const: General: cooperative, healthy appearing, comfortable and no acute distress Resp: Auscultation: no crackles, no rales, no rhonchi and no wheezes Cardio: Rhythm: regular rhythm Heart sounds: no click and no murmurs GI: Inspection: non-distended Auscultation: normal bowel sounds Extrem: General: normal to inspection, no pedal edema and no calf tenderness
[2020-09-21] MEDS: KCL 20 MEQ/D5/0.45% SOD CHL 1,000 ML 125 ML IV CONT (09:27)
[2020-09-21 12:30] VITALS: BP 119/67; PULSE 94; RESP 14; TEMP 36.6; O2SAT 98
[2020-09-21 13:00] VITALS: PULSE 94; RESP 14; O2SAT 98
[2020-09-21 17:00] VITALS: BP 120/70; PULSE 98; RESP 18; TEMP 36.8; O2SAT 99
[2020-09-21 19:20] VITALS: BP 133/73; PULSE 98; RESP 18; TEMP 36.7; O2SAT 98; O2SAT 99
[2020-09-21] MEDS: HYDROcodone/acetaminophen (*CRX) 10-325 MG TABLET 1 TAB PO (21:09)
[2020-09-22] MEDS: HYDROcodone/acetaminophen (*CRX) 10-325 MG TABLET 1 TAB PO ×5 (01:31→15:48)
[2020-09-22] MEDS: IBUPROFEN 600 MG TABLET PO ×2 (04:18→15:48)
[2020-09-22] MEDS: SIMETHICONE 80 MG TAB.CHEW PO ×2 (04:18→09:16)
[2020-09-22] MEDS: LANOLIN (LANSINOH) 7.5 GM CREAM 1 APPLIC TOPICAL (04:30)
[2020-09-22] MEDS: MULTIVIT/MIN/PREN/FOL AC/IRON TABLET 1 TAB PO (09:16)
[2020-09-22] MEDS: POLYSACCHARIDE IRON COMPLEX 150 MG CAPSULE PO ×2 (09:17→15:48)
[2020-09-22 09:30] VITALS: BP 132/68; PULSE 98; RESP 20; TEMP 36.4
--- NOTE | 2020-09-22 09:45 | PC.NURSE ---
Consult with pt., mother states she has attempted to breast several times. Mother is supplementing each feeding as ordered by ICP. Mother states she has not pumped regularly as suggested and may start today. Offered assist with pumping and/or feeding mother declines offer.
--- NOTE | 2020-09-22 09:54 | PM.OBPNVD ---
OB - PN: Subj Subjective Date/time seen: 09/22/20 09:54 Patient comments: no complaints, pain well controlled, incisional pain, tolerating diet and flatus present OB - PN: Obj Data Labs CBC & Chem 7: 09/21/20 05:20 09/19/20 20:02 Labs: Laboratory Results - last 24 hr 09/20/20 10:34 Crossmatch See Detail OB - PN A/P Plan day: 2 Plan: routine care Comments: POD#2 LTCS - no problems, Time Spent With Patient Time: Total time spent is greater than 50% in coordination of care (as documented) at patient's floor/unit and/or counseling patient: Exam Const: General: comfortable, no acute distress and alert Resp: Effort & Inspection: normal respiratory effort Auscultation: no crackles, no rales and no rhonchi Cardio: Rate: regular rate Heart sounds: no click, no murmurs and no rubs GI: Inspection: non-distended GI Palp: No Tenderness to palpation present (GI) Auscultation: normal bowel sounds Other: Incision - CDI Extrem: General: normal to inspection, no pedal edema and no calf tenderness
[2020-09-22] MEDS: ENOXAPARIN 40 MG/0.4 ML SYRINGE SUB-Q (12:21)
[2020-09-22 12:29] VITALS: BP 131/59; PULSE 82; RESP 20; TEMP 36.3
--- NOTE | 2020-09-22 15:05 | PC.NURSE ---
consult with pt., mother reports she attempted to breast, was not interested or making attempts to latch. Pt's sister formula feed while mother pumped, obtaining 25 mls for next feeding. Mother reports she pumped without difficulties or discomfort. Requested mother call out for assist next feeding. Encouraged mother to p ump each feeding does not nurse. Reviewed mother may not get the same amount each time with pumping, her milk should transition in within a few days and pumping volume should increase and be more regular.
[2020-09-22 15:35] VITALS: BP 135/77; PULSE 107
[2020-09-22 19:48] VITALS: BP 125/61; PULSE 104; RESP 16; TEMP 36.9
[2020-09-23] MEDS: IBUPROFEN 600 MG TABLET PO (00:15)
[2020-09-23] MEDS: HYDROcodone/acetaminophen (*CRX) 10-325 MG TABLET 1 TAB PO ×3 (00:15→10:58)
[2020-09-23] MEDS: POLYSACCHARIDE IRON COMPLEX 150 MG CAPSULE PO (07:25)
[2020-09-23] MEDS: MULTIVIT/MIN/PREN/FOL AC/IRON TABLET 1 TAB PO (07:25)
[2020-09-23 07:30] VITALS: BP 143/82; PULSE 98; RESP 20; TEMP 37.2
--- NOTE | 2020-09-23 07:38 | PM.OBPNVD ---
OB - PN: Subj Subjective Date/time seen: 09/23/20 07:38 Patient comments: no complaints, pain well controlled, incisional pain, tolerating diet and flatus present OB - PN: Obj Data Labs CBC & Chem 7: 09/21/20 05:20 09/19/20 20:02 OB - PN A/P Plan day: 3 Plan: routine care, discharge home and other Comments: Incision check in one week. Given precautions Time Spent With Patient Time: Total time spent is greater than 50% in coordination of care (as documented) at patient's floor/unit and/or counseling patient: Exam Const: General: comfortable, no acute distress and alert Resp: Effort & Inspection: normal respiratory effort Auscultation: no crackles, no rales and no rhonchi Cardio: Rate: regular rate Heart sounds: no click, no murmurs and no rubs GI: Inspection: non-distended GI Palp: No Tenderness to palpation present (GI) Auscultation: normal bowel sounds Other: Incision - CDI Extrem: General: normal to inspection, no pedal edema and no calf tenderness
--- NOTE | 2020-09-23 07:39 | PM.OBDSVD ---
DS: Admitting Diagnosis Admitting Diagnosis Admitting Diagnosis: term DS: Discharge Diagnosis Discharge Diagnosis (1) delivery delivered: Code(s): O82 - Encounter for delivery without indication Status: Acute OB - DS: Summary OB Procedures : NST and Ultrasound OB Procedures Intrapartum: and Tubal ligation OB Procedures: : None Peripartum Data Procedures: Procedures Operation Date: 09/20/20 17:05 Actual Procedures Side Surgeon p Section Not Applicable Vanessa Mccarthy MD Time Spent with Patient Time attestation: Total time spent providing and/or coordinating discharge services: DS: Data Data Completed and Pending Pending studies at discharge: Pending at discharge 09/20/20 19:58 Surgical [PTH] Routine Discharge Plan Discharge Discharging Clinician: Vanessa Mccarthy Patient Disposition: Home, Self-Care Activity: pelvic rest Diet: regular Patient Instructions: Antibiotic Form Stand Alone Forms: General Discharge Information Follow-up/Referrals: Vanessa Mccarthy MD [Physician] - Discharge Medications: New hydrocodone-acetaminophen 5-325 mg tablet 1 - 2 tablet PO Q4H PRN (Reason: pain) Qty: 25 RF: 0 Continued #2 Tablet 1 tablet PO DAILY RF: 0 Date of admission: 09/20/20 07:45 Primary Care Provider: PHYSICIAN,MARKETING DIRECTOR Admitting Provider: Vanessa Mccarthy Attending physician on admission: Vanessa Mccarthy Condition: Stable
[2020-09-23] MEDS: ENOXAPARIN 40 MG/0.4 ML SYRINGE SUB-Q (10:19)
--- NOTE | 2020-09-23 11:07 | PC.NURSE ---
Patient was given the opportunity to view the discharge video Mother & Baby Care, The First Two Weeks and to ask questions. Patient declined viewing the video and has been given the mother/baby guide for home reference.
--- NOTE | 2020-09-23 11:08 | PC.NURSE ---
Patient discharged [facility]
== END 2020-09-23 11:05 | disposition home or self-care (01) | DRG 540 ==
LOC: ANHOBOP 20:06 → ANHLDR 21:02 → ANHOB2 09-20 22:34
PROVIDERS: Advanced Practice Midwife; Nurse Anesthetist, Certified Registered; Admitting Provider Obstetrics & Gynecology; Visit Provider Obstetrics & Gynecology
PROC: 10D00Z1 Extraction of Products of Conception, Low, Open Approach (ICD-10-PCS; CPT 59514; principal; 2020-09-20 17:05)
DX: O14.94 Unspecified pre-eclampsia, complicating childbirth (principal); Z37.0 Single live birth; Z3A.36 36 weeks gestation of pregnancy; O32.4XX0 Maternal care for high head at term, not applicable or unspecified; O34.211 Maternal care for low transverse scar from previous cesarean delivery; O99.214 Obesity complicating childbirth; E66.9 Obesity, unspecified; O99.824 Streptococcus B carrier state complicating childbirth; Z30.2 Encounter for sterilization
CPT/HCPCS: 36415; 59025; 80053; 84550; 85025; 85027; 86592; 86850; 86900; 86901; 86920; 88302; 88307; A9270; J0131; J1650; J1885; J2274; J2590; J3010; J3370; J3475; J3480; J7120

== ENCOUNTER 2023-02-08 11:34 | Emergency (ER) | payer OTHER, SELFPAY ==
[2023-02-08 12:08] VITALS: BP 147/87; PULSE 80; RESP 16; TEMP 36.8; O2SAT 100
--- NOTE | 2023-02-08 16:08 | PC.NURSE ---
Pt did not answered when called for room
== END 2023-02-08 16:23 | disposition left against medical advice (07) ==
LOC: ANHED 16:21
DX: R10.11 Right upper quadrant pain (principal)
CPT/HCPCS: 99199

== ENCOUNTER 2025-02-16 19:02 | Emergency (ER) | payer OTHER, SELFPAY ==
--- NOTE | ~2025-02-16 | XR_ITS ---
Examination: XR chest 2V Clinical History: sob Comparison: Chest x-ray 06/06/2020 Technique: PA and Lateral Findings: Cardiomediastinal silhouette normal size and configuration. Lungs clear. No acute bony abnormality. IMPRESSION: 1. No acute cardiopulmonary findings. Reviewed, dictated and finalized at location R.
[2025-02-16 19:09] VITALS: BP 150/72; PULSE 103; RESP 20; TEMP 36.4; O2SAT 98
--- NOTE | 2025-02-16 20:26 | ECG_ITS ---
Test Date: 2025-02-16 20:35:56 Measurements Intervals [place] Rate: 91 P: 20 [place]: 132 QRS: 8 QRSD: 78 T: 14 QT: 345 QTc: 425 Interpretive Statements SINUS RHYTHM LOW QRS VOLTAGE IN PRECORDIAL LEADS [QRS DEFLECTION < 1.0 mV IN CHEST LEADS] PATTERN CONSISTENT WITH PULMONARY DISEASE ABNORMAL ECG No previous ECG available for comparison Electronically Signed On 02-17-2025 07:51:08 CDT by Feliciano Barnes M.D.
[2025-02-16 20:43] LABS: Hematocrit 31.3 % (37.0-47.0); Hemoglobin 8.6 g/dL (12.0-15.0); Immature Granulocyte Percent A 0.4 % (0-0.5); Lymphocytes Absolute Auto 2.07 K/mm3 (0.9-3.2); Mean Corpuscular HGB Conc 27.5 g/dl (32-36); Mean Corpuscular Hemoglobin 19.3 pg (26-34); Mean Corpuscular Volume 70.3 fl (80-100); Nucleated Red Blood Cells Absolute Auto 0.000 K/mm3 (0.0-0.012); Nucleated Red Blood Cells Perc 0.0 % (0.0-0.2); Platelet Count Result 296 k/mm3 (150-375); Red Blood Count 4.45 M/mm3 (4.2-5.4); White Blood Count 7.8 K/mm3 (4.5-10.0)
--- OUTSIDE RECORDS SUMMARY | 2025-02-16 20:48 | XMS_ITS | Encounter Summary ---
Author Organization [facility] Address [address] [place] [id number] Care Team Providers Care Alum Operator Name Role Phone Man Jeff MD Primary Care Provider [phone] Reason for Visit * Reason Onset Date Comments Forms Request 02/11/2025 Encounter Details Date Type Department Care Team ([facility] st Contact Info) Description 02/11/2025 Telephone [facility] [address] [place] [address] Man Jeff MD [address] [place] [address] Forms Request Social History Tobacco Use Types Packs/Day Years Used Date Smoking Tobacco: Never Passive Smoke Exposure: Never Smokeless Tobacco: Never PHQ-2 Answer Date Recorded PHQ-2 Total Score (If total score is 3 or more points, staff should administer the PHQ-9) 0 10/25/2024 PHQ-9 Answer Date Recorded PHQ-9 Total Score 18 06/21/2024 Comments Unknown Sex and Gender Information Value Date Recorded Sex Assigned at Not on file 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 * Telephone Encounter - Kisha Browning - 02/11/2025 8:13 AM CDT Called and let patient know once we receive we will get to shelia for review. Shelia are you willing to complete for patient? * Telephone Encounter - Chilo Rosas - 02/11/2025 8:06 AM CDT Forms Request Form requested: Existing FMLA/Disability Form Date needed: mariel How is patient delivering to office: Sending to practice as attachment via [employer] Who is form being returned to? Patient How to return form to patient:sending to patient as attachment via [employer] Additional Comments: pt will be sending to [employer] later this morning. Its an FMLA form for sick time/PTO she took while being off work with covid. Does message need to be routed? Yes-Action Needed documented in this encounter Plan of Treatment Not on file documented as of this encounter Visit Diagnoses Not on filedocumented in this encounter Care Teams Alum Operator Relationship Specialty Start Date End Date Man Jeff MD [address] [place] [address] PCP - General Family Medicine 06/21/22 documented as of this encounter
--- OUTSIDE RECORDS SUMMARY | 2025-02-16 20:48 | XMS_ITS | Clinical Summary ---
Author Organization [address] Address [address] [place] [id number] Care Team Providers Care Medical Delivery Driver Name Role Phone Man Jeff MD Primary Care Provider [phone] Allergies Active Allergy Reactions Criticality Noted Date Comments Amoxicillin Urticaria Medium 08/21/2020 Penicillins Hives Medium 09/21/2021 Medications QUEtiapine (SEROquel) 50 mg tabletIndicatio ns:Generalized Anxiety Disorder Take 1 tablet (50 mg total) by mouth nightly 30 tablet 11 5 026 Active ergocalciferol (VITAMIN D) 50,000 unit capsuleIndicati ons:Vitamin D deficiency Take 1 capsule (50,000 Units total) by mouth once a week 4 capsule 5 026 Active topiramate (TOPAMAX) 25 mg tabletIndicatio ns:Class 3 severe obesity due to excess calories without serious comorbidity with body mass index (BMI) of 50.0 to 59.9 in adult Take 1 tablet (25 mg total) by mouth 2 (two) times a day 60 tablet 5 026 Active Additional Information Patient not taking.Reported on 02/13/2025 albuterol HFA (PROVENTIL HFA,VENTOLIN HFA,PROAIR HFA) 90 mcg/actuation inhalerIndicati ons:COVID-19 Inhale 2 puffs every 6 (six) hours as needed for wheezing or shortness of breath 1 each 5 Active azithromycin (ZITHROMAX) 250 mg tabletIndicatio ns:Lower respiratory infection (e.g., bronchitis, pneumonia, pneumonitis, pulmonitis) Take 2 tablets the first day, then 1 tablet daily for 4 days. 6 tablet 5 Active benzonatate (TESSALON) 200 mg capsuleIndicati ons:Lower respiratory infection (e.g., bronchitis, pneumonia, pneumonitis, pulmonitis) Take 1 capsule (200 mg total) by mouth 3 (three) times a day as needed for cough 30 capsule 5 Active nirmatrelvir 300 mg-ritonavir 100 mg (PAXLOVID 300mg-100 mg) tablets,dose pack tablets in a dose packIndications :COVID-19 Take 300 mg nirmatrelvir (2 x 150 mg tablets) with 100 mg ritonavir (1 x 100 mg tablet) with all three tablets taken together by mouth twice daily for 5 days. 30 tablet 5 025 Active Problems Problem Noted Date Diagnosed Date Vitamin D deficiency 10/25/2024 Assessment & Plan (10/25/2024 1:20 PM CDT): Will continue on Vitamin D supplement. Will continue to monitor. Orders: Vitamin D 25 hydroxy; Future Annual physical exam 02/13/2024 Assessment & Plan (02/13/2024 8:47 AM CDT): In regard to health maintenance, Colonoscopy- UTD Mammogram- declined WWE- advised to get annual exams Influenza vaccine- not in office yet ASCVD risk: 1.4% Eat a healthy diet: focus on lean meats and proteins, more fruits, vegetables and whole grains and low in sugars and fats. Limit red meat and avoid processed meat. Maintain a healthy weight; avoid being overweight. Aim for a normal body mass index (BMI) of 18.5-24.9. Help learning to eat healthier, we can set up appointment with auxiliary powerplant operator/casualty claim adjuster. Have an active lifestyle, strive for 30 minutes of moderate exercise 5 times a week and strength or resistance training at least twice a week. Use broad-spectrum (UVA+UVB) sunscreen with SPF 30 or greater, is water resistant, limit time spent in the sun (10 am-4pm), wear hat, wear UV protective clothing, wear sunglasses. Never use a tanning bed. Skin that was irradiated may be more sensitive over your lifetime. Weight gain 02/13/2024 Assessment & Plan (09/27/2024 2:34 PM CDT): Will check labs to figure out cause of weight gain like thyroid dysfunction, hormone changes, or PCOS. Will continue to monitor. Orders: Hemoglobin A1c; Future Comprehensive metabolic panel; Future CBC with auto differential; Future Estrogens, fractionated; Future Total testosterone; Future DHEA-sulfate; Future Iron profile w/ IBC; Future Vitamin D 25 hydroxy; Future Follicle stimulating hormone; Future Prolactin; Future TSH; Future T4, free; Future T3, free; Future Assessment & Plan (02/13/2024 8:47 AM CDT): Zepbound ordered and put on Wellbutrin for anxiety/depression due to low risk for weight gain. ELA (generalized anxiety disorder) 02/13/2024 Assessment & Plan (10/25/2024 1:20 PM CDT): Stable and well controlled. Will continue on seroquel. Will continue to monitor. Assessment & Plan (09/27/2024 2:34 PM CDT): Stable and well controlled. No longer taking Wellbutrin . Will continue on Seroquel. Will continue to monitor. Assessment & Plan (06/21/2024 4:15 PM AUDIO VISUAL ARTS DIRECTOR): Not well controlled. Will add Seroquel to her Wellbutrin and continue to monitor. Will reevaluate in 3 months. Assessment & Plan (02/13/2024 8:48 AM CDT): Wellbutrin ordered advised to follow-up in 1 month for discussion on affect. Fatigue 02/13/2024 Assessment & Plan (10/25/2024 1:20 PM CDT): Still having some fatigue. Will give Iron and Vitamin D supplements to work. Will continue to monitor. Orders: CBC with auto differential; Future Assessment & Plan (09/27/2024 2:34 PM CDT): Will check labs to rule in or out causes of fatigue like thyroid disorder, anemia, and hormone issues. Will continue to monitor. Orders: CBC with auto differential; Future Estrogens, fractionated; Future Total testosterone; Future DHEA-sulfate; Future Iron profile w/ IBC; Future Vitamin D 25 hydroxy; Future Follicle stimulating hormone; Future Prolactin; Future TSH; Future T4, free; Future T3, free; Future Assessment & Plan (02/13/2024 8:48 AM CDT): TSH and Free T4 ordered due to trending down over previous results. Iron deficiency anemia 10/12/2021 Overview (10/12/2021): Added automatically from request for surgery [id number] Assessment & Plan (10/25/2024 1:20 PM CDT): Continues to take iron supplement. Will continue to monitor. Will repeat labs in 6 months. Orders: Comprehensive metabolic panel; Future CBC with auto differential; Future Iron profile w/ IBC; Future Assessment & Plan (09/27/2024 2:34 PM CDT): Will recheck iron levels. Will continue to monitor. Orders: Iron profile w/ IBC; Future Assessment & Plan (02/13/2024 8:44 AM CDT): Iron studies ordered will monitor. Class 3 severe obesity due t o excess calories without serious comorbidity with body mass index (BMI) of 50.0 to 59.9 in adult 08/21/2020 Assessment & Plan (10/25/2024 1:20 PM CDT): Encouraged heart healthy diet and lifestyle. Advised 150 min/week of aerobic exercise. Will start on Phentermine and Topiramate. Assessment & Plan (09/27/2024 2:34 PM CDT): Encouraged heart healthy diet and lifestyle. Advised 150 min/week of aerobic exercise. Assessment & Plan (06/21/2024 4:14 PM AUDIO VISUAL ARTS DIRECTOR): Encouraged heart healthy diet and lifestyle. Advised 150 min/week of aerobic exercise. Assessment & Plan (03/15/2024 3:19 PM CDT): Congratulate on 11 lbs weight loss. Will discontinue phentermine and ordered Qysmia. Assessment & Plan (02/13/2024 8:45 AM CDT): Encouraged heart healthy diet and healthy lifestyle. Advised to aim for 150 min/week of aerobic exercise. Zepbound ordered. Assessment & Plan (01/19/2023 4:37 PM CDT): Has lost 11 lbs since visit x 1 month ago (home scale reads 263 lbs). She is down 40 lbs total. Tolerating the Phentermine 30 mg and it is working effectively. This is her last refill. Assessment & Plan (12/22/2022 4:22 PM CDT): Patient is down another 14 lbs from our last visit x 1 month ago. No side effects noted with the Phentermine but feels like she didn't have much appetite suppression. She has been working on the diet and exercise consistently. Will refill Phentermine for patient at 30 mg for more appetite suppression. Assessment & Plan (11/17/2022 1:43 PM CDT): Has last 13 lbs with diet/exercise. Discussed medications and Phentermine may be a good fit to aid/jumpstart patient's efforts. However, would like to have lab work performed first. Will check with her PCP also to make sure he is ok with Phentermine prior to initiating. Education provided to patient. Encounters Date Type Department Care Team Description 02/13/2025 6:45 PM CDT Office Visit [facility] Medical [facility] Care at [address] [phone] Willow Anderson NP Lower respiratory infection (e.g., bronchitis, pneumonia, pneumonitis, pulmonitis) (Primary Dx) 02/13/2025 Telephone [facility] [address] [place] [phone] Maribell Shine virtual care appointment 02/13/2025 Patient Self-Triage [facility] [address] [place] [phone] Mychart, Generic Provider 02/13/2025 Patient Self-Triage [facility] [address] [place] [phone] Mychart, Generic Provider 02/11/2025 Telephone [facility] [address] [phone] Man Jeff MD Forms Request 02/06/2025 Telephone [facility] [address] [address] Man Jeff MD Forms Request 02/05/2025 Orders Only [facility] [address] [phone] Shelia [place] NP 02/04/2025 Nurse Triage [facility] [address] [phone] Man Jeff MD 02/02/2025 6:30 PM CDT Telemedicine [facility] Virtual Care [address] [place] [phone] Mary Hdz, DIONISIO COVID-19 (Primary Dx) 02/02/2025 Patient Self-Triage [facility] Health[facility]/ Physicians [address] [place] [phone] Mychart, Generic Provider from Last 3 Months Immunizations Immunization Administration Dates Next Due Influenza, Quadrivalent, Spl it, Preservative Free, Intramuscular 03/17/2021,02/21/2016 Influenza, Unspecified 10/25/2024(Deferr ed: Patient Refused),10/25/2024(Deferred: Patient Refused),06/21/2024(Deferred: Patient Refused),03/15/2024(Deferred: Patient Refused),02/13/2024(Deferred: Patient Refused),02/04/2024(Deferred: Patient Refused),02/04/2024(Deferred: Patient Refused),02/04/2024(Deferred: Patient Refused),02/21/2023(Deferred: Patient Refused),02/03/2023(Deferred: Patient Refused),02/03/2023(Deferred: Patient Refused),02/03/2023(Deferred: Patient Refused),01/19/2023(Deferred: Patient Refused),06/21/2022(Deferred: Patient Refused),06/05/2022(Deferred: Patient Refused),06/21/2021(Deferred: Patient Refused),06/05/2021(Deferred: Patient Refused) MMR 04/14/2021,03/17/2021 Tdap 02/21/2016 Surgical History Surgery Date Site/Laterality Comments TUBAL LIGATION COLONOSCOPY 10/14/2021 1st Medical History Medical History Date Comments Iron deficiency anemia 10/12/2021 Added aut omatically from request for surgery [id number] Social History Tobacco Use Types Packs/Day Years Used Date Smoking Tobacco: Never Passive Smoke Exposure: Never Smokeless Tobacco: Never Tobacco Cessation:Counseling Given: Not Answered PHQ-2 Answer Date Recorded PHQ-2 Total Score (If total score is 3 or more points, staff should administer the PHQ-9) 0 10/25/2024 PHQ-9 Answer Date Recorded PHQ-9 Total Score 18 06/21/2024 Comments Unknown Sex and Gender Information Value Date Recorded Sex Assigned at Not on file Legal Sex Female 7:08 PM AUDIO VISUAL ARTS DIRECTOR Gender Identity Female 12/05/2022 9:29 PM CDT Sexual Orientation Straight 12/05/2022 9: 29 PM CDT Obstetrics History Last Filed Vital Signs Vital Sign Reading Time Taken Comments Blood Pressure 142/86 02/13/2025 6:44 PM CDT Pulse 94 02/13/2025 6:44 PM CDT Temperature 36.8 C (98.3 F) 02/13/2025 6:44 PM CDT Respiratory Rate 20 02/13/2025 6:44 PM CDT Oxygen Saturation 96% 02/13/2025 6:44 PM CDT Inhaled Oxygen Concentration - - Weight 137.7 kg (303 lb 8 oz) 02/13/2025 6:44 PM CDT Height 154.9 cm (5' 0.98) 02/13/2025 6:44 PM CD T Body Mass Index 57.38 02/13/2025 6:44 PM CDT Plan of Treatment Health Maintenance Due Date Last Done Comments Breast Cancer Screening-Mammogram 1980 Cervical Cancer Screening 1980 Hepatitis C Screening 1980 Hepatitis B Screening 1996 Covid-19 Vaccine ( season) 2025 04/14/2021, 03/24/2021 Influenza Vaccine (#1) 2025 03/17/2021, 2015 Regular Well Visit/Exam 18-64 02/12/2025 02/13/2024 Depression Screening 10/25/2025 10/25/2024, 09/27/2024, 06/21/2024, Additional history exists DTaP/Tdap/Td Vaccine (2 - Td or Tdap) 02/20/2026 02/21/2016 Colon Cancer Screening-Colonoscopy 10/15/2031 10/14/2021 HPV Vaccines Aged Out No longer eligi ble based on patient's age to complete this topic Pneumococcal vaccine <65 Aged Out No longer eligible based on patient's age to complete this topic Procedures Procedure Name Priority Date/Time Associated Diagnosis Comments COLONOSCOPY 10/14/2021 8:11 AM CDT from Last 3 Months or Most Recently Relevant to Health Maintenance Results * COLONOSCOPY (10/14/2021 8:11 AM CDT) Anatomical Region Laterality Modality Other Narrative Procedure Note Nirav Dee MD - 10/14/2021 8:11 AM CDT [facility] Patient Name: Madhavi Stauffer Procedure Date: 10/14/2021 8:11 AM Date of : 1980 Admit Type: Outpatient Age: 41 Gender: Female Attending MD: Nirav Dee M.D. Room: [facility] ENDOSCOPY ROOM 2 Note Status: Finalized Patient Profile: Refer to note in patient chart for documentation of history and physical. Procedure: Colonoscopy Indications: This is the patient's first colonoscopy, Iron deficiency anemia Referring MD: Man Jeff M.D. Providers: Nirav Dee M.D. Impression: - Hemorrhoids found on perianal exam. - The entire examined colon is normal. Biopsied. - The examined portion of the ileum was normal. Biopsied. - The examination was otherwise normal. Recommendation: - Discharge patient to home. - Resume previous diet. - Continue present medications. - Await pathology results. - Repeat colonoscopy in 10 years for screening purposes. - Return to primary care physician as previously scheduled. Medicines: Propofol per Anesthesia Complications: No immediate complications. Estimated Blood Loss: Estimated blood loss: none. Procedure: Pre-Anesthesia Assessment: - This assessment was completed [Time ofAssessment] prior to the administration of sedation. The benefits, risks and alternatives of theprocedure and sedation were discussed and informed consentwas obtained. All questions were answered. Please referto the signed informed consent document in the medical record. The bowel preparation used was Miralax via single dose instruction. The bowel preparation used was bisacodyl tablets via single dose instruction.The scope was passed under direct vision. TheColonoscope [id number] was introduced through the anus and advanced to the the terminal ileum, with identification of the appendiceal orifice and IC valve. The colonoscopy was performed without difficulty. The patient tolerated the procedurewell. The quality of the bowel preparation was good. The terminal ileum, ileocecal valve, appendicealorifice, and rectum were photographed. Findings: Hemorrhoids were found on perianal exam. The colon (entire examined portion) appeared normal. Biopsies weretaken with a cold forceps for histology. Verification of patient identification for the specimen was done by the physician and nurse using the patient's name and date. Estimated blood loss was minimal. The terminal ileum appeared normal. Biopsies were taken with a cold forceps for histology. Verification of patient identification for the specimen was done by the physician and nurse using the patient's name and date. Estimated blood loss was minimal. The exam was otherwise without abnormality. Electronically signed by Nirav Dee M.D. Nirav Dee M.D. 10/14/2021 9:36:43 AM Number of Addenda: 0 Note Initiated On: 10/14/2021 8:11 AM Procedure Code(s): --- Professional --- 92619, Colonoscopy, flexible; with biopsy, single or multiple Diagnosis Code(s): --- Professional --- D50.9, Iron deficiency anemia, unspecified K64.9, Unspecified hemorrhoids CPT copyright 2020 [employer]. All rights reserved. The codes documented in this report are preliminary and upon medical librarian reviewmay be revised to meet current compliance requirements. Recognized by the [employer] for promoting quality in endoscopy Nirav Dee MD ENDOSCOPY PROCEDURES Final Re sult from Last 3 Months or Most Recently Relevant to Health Maintenance Insurance [facility] Advance Directives For more information, please contact: [phone] * Full Code (Latest Code Status on File) Date Activated Date Inactivated Comments 10/14/2021 8:04 AM 10/14/2021 2:26 PM * Full Code Date Activated Date Inactivated Comments 10/14/2021 8:04 AM 10/14/2021 8:04 AM Care Teams Medical Delivery Driver Relationship Specialty Start Date End Date [place] [address] PCP - General Family Medicine 06/21/22
--- OUTSIDE RECORDS SUMMARY | 2025-02-16 20:48 | XMS_ITS | Clinical Summary ---
Author Organization [facility] Address [address] 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 This disclosure is being madepursuant to the Care Everywhere program and may not contain all information available regarding this patient. 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 Gender Identity Not on file Sexual Orientation Not on file Last Filed Vital Signs Vital Sign Reading Time Taken Comments Blood Pressure - - Pulse - - Temperature 36.2 C (97.2 F) 07/27/2020 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 Respiratory Rate - - Oxygen Saturation - - Inhaled Oxygen Concentration - - Weight - - Height - - Body Mass Index - - Plan of Treatment Health Maintenance Due Date Last Done Comments COLOGUARD (AGES 45-75) - COL ON CA SCREENING 1978 COLON MONITORING 1978 COLONOSCOPY - COLON CA SCREENING 1978 CT COLONOGRAPHY - COLON CA SCREENING 1978 Colorectal Cancer Screening 1978 FIT - COLON CA SCREENING 1978 FLEX SIG - COLON CA SCREENING 1978 LIPID TESTING 1978 MAMMOGRAM 1978 HIV SCREENING 1993 HEPATITIS C SCREENING 07/04/1996 DTAP/TDAP/TD VACCINES (1 - Tdap) 1997 HEPATITIS B VACCINE (1 of 3 - 19+ 3-dose series) 1997 DEPRESSION SCREENING 06/05/2024 COVID-19 VACCINE (1 - 2023-2 5 season) 2025 INFLUENZA VACCINE (#1) 2025 02/21/2016 ZOSTER VACCINE (1 of 2) 2028 HIB VACCINE Aged Out No longer eligi ble based on patient's age to complete this topic HPV VACCINE Aged Out No longer eligi ble based on patient's age to complete this topic MENINGOCOCCAL (Group B) VACC INE SHARED DECISION-MAKING Aged Out No longer eligibl e based on patient's age to complete this topic MENINGOCOCCAL GROUPS A/C/Y/W VACCINE Aged Out No longer eligible b ased on patient's age to complete this topic PNEUMOCOCCAL VACCINE Aged Out No long er eligible based on patient's age to complete this topic Insurance [facility]
[2025-02-16 20:56] LABS: Alanine Aminotransferase 20 U/L (6-35); Albumin Level 3.8 g/dL (3.5-5.1); Alkaline Phosphatase 82 U/L (38-126); Anion Gap 8 mmol/L (4-12); Aspartate Amino Transferase 29 U/L (14-36); Bilirubin,Total 0.3 mg/dL (0.2-1.3); Blood Urea Nitrogen 13 mg/dL (7-17); Calcium 8.5 mg/dL (8.4-10.2); Carbon Dioxide 24 mmol/L (22-30); Chloride 105 mmol/L (98-107); Estimated CRCL calculation 111 ml/min; Estimated Glomerular Filt Rate > 60; Glucose 107 mg/dL (65-110); Magnesium 1.9 mg/dL (1.6-2.3); Potassium 3.8 mmol/L (3.4-5.0); Sodium 137 mmol/L (137-145); Total Protein 7.4 g/dL (6.3-8.2)
[2025-02-16 20:59] VITALS: BP 129/63; PULSE 87; RESP 18; TEMP 37.3; O2SAT 97
[2025-02-16 21:07] LABS: Anisocytosis 1+; Hypochromasia 1+; Microcytosis 1+ (NORMAL); Ovalocytes Occasional
[2025-02-16 21:08] LABS: Schistocytes None Seen
--- NOTE | 2025-02-16 21:12 | ED.GENADULT ---
HPI - General Adult General Chief complaint: Shortness of Breath/Dyspnea Stated complaint: SOB Time Seen by Provider: 02/16/25 20:27 History of Present Illness HPI narrative: Patient is a 44-year-old female who presents emergency department this evening complaining of shortness of breath. Diagnosed with COVID 2 weeks ago. States that she still has a semi productive, has been using an inhaler that her doctor prescribed her but states that she still has the cough and shortness of breath despite using the inhaler. Denies any history of COPD or asthma. Otherwise denies any chest pain, and additional symptoms or concerns. Related Data Home Medications ?Medication ?Instructions ?Recorded ?Confirmed ?Last Taken ?Type prenat.vits,desirae,[id number] 1 tablet PO DAILY 09/15/20 09/19/20 09/15/20 06:30 History Allergies Allergy/AdvReac Type Severity Reaction Status Date / Time Penicillins Allergy Mild Hives / Verified 09/15/20 13:19 Red Face amoxicillin Allergy Unknown HIVES Verified 09/15/20 13:19 Review of Systems Review of Systems: All systems are reviewed and are negative unless stated otherwise in the HPI. [facility] Past Medical History Medical History Obesity Family History Family History Mother Diabetes mellitus High cholesterol Father Lung cancer Sibling Breast cancer Other Patient's father is Social History Social History Smoking status: Never smoker Substance use: never Gender identity (if verbalized by the patient): Female Spiritual care concerns: No Exam Narrative: General: Alert, awake, afebrile, in no acute distress. HEENT: PERRL, no rhinorrhea, no post nasal drip, oropharynx clear. Neck: Trachea midline, no JVD, no lymphadenopathy. Cardiovascular: Regular rate and rhythm, no murmurs, rubs or gallops, no peripheral edema. Respiratory: Clear to auscultation bilaterally, no tachypnea, no wheezing, no rhonchi, no rubs, no respiratory distress. Abdomen: Soft, nontender, nondistended, no rebound, no guarding, no peritoneal signs. Musculoskeletal: No joint swelling or deformity, normal muscle tone. Skin: No rashes or petechia, no signs of infection. Psychiatric: Alert and oriented, normal behavior and judgment for situation. Neurological: Alert and oriented to person, place, and time. Follows all commands. No focal deficits, speech is clear and fluent. Course Vital Signs Vital signs: Vital Signs Temperature 97.5 F L 02/16/25 19:09 Pulse Rate 103 H 02/16/25 19:09 Respiratory Rate 20 02/16/25 19:09 Blood Pressure 150/72 H 02/16/25 19:09 Pulse Oximetry 98 02/16/25 19:09 Oxygen Delivery Room Air 02/16/25 19:09 Temperature 99.1 F 02/16/25 20:59 Pulse Rate 87 02/16/25 20:59 Respiratory Rate 18 02/16/25 20:59 Blood Pressure 129/63 02/16/25 20:59 Pulse Oximetry 97 02/16/25 20:59 Oxygen Delivery Room Air 02/16/25 20:59 Medical Decision Making [facility] Narrative Medical decision making narrative: The patient was evaluated by myself in the emergency department. History is obtained from patient who is an independent historian and physical exam was performed. External medical records were reviewed at this time. IV was established and pertinent tests were ordered. EKG was obtained which revealed sinus rhythm rate of 91 beats per minute otherwise no evidence of acute ischemia. EKG was independently interpreted by me and is currently pending official cardiology read. Laboratory results obtained revealing no acute process. Imaging studies obtained included CXR which was independently interpreted by me revealing no acute process, which is pending final radiology interpretation. Differential diagnosis considerations include infectious process such as pneumonia, acute viral syndrome, COVID, bronchitis, reactive airway disease. Comorbidities impacting this visit include recent COVID infection. I have evaluated and discussed social determinants of health with the patient that could potentially impact subsequent diagnosis and treatment plans. On repeat assessment of the patient, reevaluation revealed that the patient is doing well and is in no acute distress. Patient symptoms have remained stable since she arrived to our emergency department. Repeat vital signs were all reviewed and noted to be stable, patient is satting 100% on room air. Differential diagnosis and treatment plan were discussed with the patient at bedside. Patient agrees with discussion and after shared medical decision making agrees with discharge. All questions were answered to the patient's satisfaction. Patient will follow up with her PCP in 3-5 days. A script for Z-Migel was not versus pharmacy to take as prescribed. Patient was provided with strict return precautions and instructed to return to the emergency department if any new or worsening symptoms develop. The patient was discharged in stable condition. Vital Signs Vital Signs: Vital Signs Temperature 97.5 F L 02/16/25 19:09 Pulse Rate 103 H 02/16/25 19:09 Respiratory Rate 20 02/16/25 19:09 Blood Pressure 150/72 H 02/16/25 19:09 Pulse Oximetry 98 02/16/25 19:09 Oxygen Delivery Room Air 02/16/25 19:09 Temperature 99.1 F 02/16/25 20:59 Pulse Rate 87 02/16/25 20:59 Respiratory Rate 18 02/16/25 20:59 Blood Pressure 129/63 02/16/25 20:59 Pulse Oximetry 97 02/16/25 20:59 Oxygen Delivery Room Air 02/16/25 20:59 Lab Data 02/16/25 20:32 02/16/25 20:32 Labs: Lab Results 02/16/25 02/16/25 02/16/25 Range/Units 20:32 20:32 20:32 WBC 7.8 (4.5-10.0) K/mm3 RBC 4.45 (4.2-5.4) M/mm3 Hgb 8.6 L (12.0-15.0) g/dL Hct 31.3 L (37.0-47.0) % MCV 70.3 L (80-100) fl MCH 19.3 L (26-34) pg MCHC 27.5 L (32-36) g/dl RDW 19.1 H (11.5-14.5) % Plt Count 296 D (150-375) k/mm3 MPV 9.7 (7.4-10.4) fl Immature Gran % (Auto) 0.4 (0-0.5) % Neut % (Auto) 62.2 (45.5-73.1) % Lymph % (Auto) 26.5 (18.3-44.2) % [place] % (Auto) 8.8 H (2.6-8.5) % Eos % (Auto) 1.3 (0-4.4) % Baso % (Auto) 0.8 (0.2-1.2) % Lymph # (Auto) 2.07 (0.9-3.2) K/mm3 [place] # (Auto) 0.7 H (0.1-0.6) K/mm3 Eos # (Auto) 0.1 (0-0.3) K/mm3 Baso # (Auto) 0.1 (0.0-0.1) K/mm3 Abs Immat Gran (auto) 0.03 (0.00-0.031) K/mm3 Absolute Neuts (auto) 4.9 (1.3-6.7) K/mm3 Absolute Nucleated RBC 0.000 (0.0-0.012) K/mm3 Band Neutrophils % Not Reportable Nucleated RBC % 0.0 (0.0-0.2) % Platelet Estimate Adequate (Adequate) Hypochromasia 1+ Anisocytosis 1+ Microcytosis 1+ (NORMAL) Ovalocytes Occasional Schistocytes None seen Sodium Cancelled 137 Potassium Cancelled 3.8 Chloride Cancelled Carbon Dioxide Anion Gap BUN Creatinine Estim Creat Clear Calc Estimated GFR Glucose Calcium Magnesium (1.6-2.3) mg/dL Total Bilirubin AST ALT Alkaline Phosphatase Total Protein Albumin 02/16/25 02/16/25 02/16/25 Range/Units 20:32 20:32 20:32 WBC (4.5-10.0) K/mm3 RBC (4.2-5.4) M/mm3 Hgb (12.0-15.0) g/dL Hct (37.0-47.0) % MCV (80-100) fl MCH (26-34) pg MCHC (32-36) g/dl RDW (11.5-14.5) % Plt Count (150-375) k/mm3 MPV (7.4-10.4) fl Immature Gran % (Auto) (0-0.5) % Neut % (Auto) (45.5-73.1) % Lymph % (Auto) (18.3-44.2) % [place] % (Auto) (2.6-8.5) % Eos % (Auto) (0-4.4) % Baso % (Auto) (0.2-1.2) % Lymph # (Auto) (0.9-3.2) K/mm3 [place] # (Auto) (0.1-0.6) K/mm3 Eos # (Auto) (0-0.3) K/mm3 Baso # (Auto) (0.0-0.1) K/mm3 Abs Immat Gran (auto) (0.00-0.031) K/mm3 Absolute Neuts (auto) (1.3-6.7) K/mm3 Absolute Nucleated RBC (0.0-0.012) K/mm3 Band Neutrophils % Nucleated RBC % (0.0-0.2) % Platelet Estimate (Adequate) Hypochromasia Anisocytosis Microcytosis (NORMAL) Ovalocytes Schistocytes Sodium Potassium Chloride 105 Carbon Dioxide Cancelled 24 Anion Gap Cancelled 8 BUN Cancelled Creatinine Estim Creat Clear Calc Estimated GFR Glucose Calcium Magnesium (1.6-2.3) mg/dL Total Bilirubin AST ALT Alkaline Phosphatase Total Protein Albumin 02/16/25 02/16/25 02/16/25 Range/Units 20:32 20:32 20:32 WBC (4.5-10.0) K/mm3 RBC (4.2-5.4) M/mm3 Hgb (12.0-15.0) g/dL Hct (37.0-47.0) % MCV (80-100) fl MCH (26-34) pg MCHC (32-36) g/dl RDW (11.5-14.5) % Plt Count (150-375) k/mm3 MPV (7.4-10.4) fl Immature Gran % (Auto) (0-0.5) % Neut % (Auto) (45.5-73.1) % Lymph % (Auto) (18.3-44.2) % [place] % (Auto) (2.6-8.5) % Eos % (Auto) (0-4.4) % Baso % (Auto) (0.2-1.2) % Lymph # (Auto) (0.9-3.2) K/mm3 [place] # (Auto) (0.1-0.6) K/mm3 Eos # (Auto) (0-0.3) K/mm3 Baso # (Auto) (0.0-0.1) K/mm3 Abs Immat Gran (auto) (0.00-0.031) K/mm3 Absolute Neuts (auto) (1.3-6.7) K/mm3 Absolute Nucleated RBC (0.0-0.012) K/mm3 Band Neutrophils % Nucleated RBC % (0.0-0.2) % Platelet Estimate (Adequate) Hypochromasia Anisocytosis Microcytosis (NORMAL) Ovalocytes Schistocytes Sodium Potassium Chloride Carbon Dioxide Anion Gap BUN 13 Creatinine Cancelled 0.71 Estim Creat Clear Calc Cancelled 111 Estimated GFR Cancelled Glucose Calcium Magnesium (1.6-2.3) mg/dL Total Bilirubin AST ALT Alkaline Phosphatase Total Protein Albumin 02/16/25 02/16/25 02/16/25 Range/Units 20:32 20:32 20:32 WBC (4.5-10.0) K/mm3 RBC (4.2-5.4) M/mm3 Hgb (12.0-15.0) g/dL Hct (37.0-47.0) % MCV (80-100) fl MCH (26-34) pg MCHC (32-36) g/dl RDW (11.5-14.5) % Plt Count (150-375) k/mm3 MPV (7.4-10.4) fl Immature Gran % (Auto) (0-0.5) % Neut % (Auto) (45.5-73.1) % Lymph % (Auto) (18.3-44.2) % [place] % (Auto) (2.6-8.5) % Eos % (Auto) (0-4.4) % Baso % (Auto) (0.2-1.2) % Lymph # (Auto) (0.9-3.2) K/mm3 [place] # (Auto) (0.1-0.6) K/mm3 Eos # (Auto) (0-0.3) K/mm3 Baso # (Auto) (0.0-0.1) K/mm3 Abs Immat Gran (auto) (0.00-0.031) K/mm3 Absolute Neuts (auto) (1.3-6.7) K/mm3 Absolute Nucleated RBC (0.0-0.012) K/mm3 Band Neutrophils % Nucleated RBC % (0.0-0.2) % Platelet Estimate (Adequate) Hypochromasia Anisocytosis Microcytosis (NORMAL) Ovalocytes Schistocytes Sodium Potassium Chloride Carbon Dioxide Anion Gap BUN Creatinine Estim Creat Clear Calc Estimated GFR > 60 Glucose Cancelled 107 Calcium Cancelled 8.5 Magnesium 1.9 (1.6-2.3) mg/dL Total Bilirubin Cancelled AST ALT Alkaline Phosphatase Total Protein Albumin 02/16/25 02/16/25 02/16/25 Range/Units 20:32 20:32 20:32 WBC (4.5-10.0) K/mm3 RBC (4.2-5.4) M/mm3 Hgb (12.0-15.0) g/dL Hct (37.0-47.0) % MCV (80-100) fl MCH (26-34) pg MCHC (32-36) g/dl RDW (11.5-14.5) % Plt Count (150-375) k/mm3 MPV (7.4-10.4) fl Immature Gran % (Auto) (0-0.5) % Neut % (Auto) (45.5-73.1) % Lymph % (Auto) (18.3-44.2) % [place] % (Auto) (2.6-8.5) % Eos % (Auto) (0-4.4) % Baso % (Auto) (0.2-1.2) % Lymph # (Auto) (0.9-3.2) K/mm3 [place] # (Auto) (0.1-0.6) K/mm3 Eos # (Auto) (0-0.3) K/mm3 Baso # (Auto) (0.0-0.1) K/mm3 Abs Immat Gran (auto) (0.00-0.031) K/mm3 Absolute Neuts (auto) (1.3-6.7) K/mm3 Absolute Nucleated RBC (0.0-0.012) K/mm3 Band Neutrophils % Nucleated RBC % (0.0-0.2) % Platelet Estimate (Adequate) Hypochromasia Anisocytosis Microcytosis (NORMAL) Ovalocytes Schistocytes Sodium Potassium Chloride Carbon Dioxide Anion Gap BUN Creatinine Estim Creat Clear Calc Estimated GFR Glucose Calcium Magnesium (1.6-2.3) mg/dL Total Bilirubin 0.3 AST Cancelled 29 ALT Cancelled 20 Alkaline Phosphatase Cancelled Total Protein Albumin 02/16/25 02/16/25 02/16/25 Range/Units 20:32 20:32 20:32 WBC (4.5-10.0) K/mm3 RBC (4.2-5.4) M/mm3 Hgb (12.0-15.0) g/dL Hct (37.0-47.0) % MCV (80-100) fl MCH (26-34) pg MCHC (32-36) g/dl RDW (11.5-14.5) % Plt Count (150-375) k/mm3 MPV (7.4-10.4) fl Immature Gran % (Auto) (0-0.5) % Neut % (Auto) (45.5-73.1) % Lymph % (Auto) (18.3-44.2) % [place] % (Auto) (2.6-8.5) % Eos % (Auto) (0-4.4) % Baso % (Auto) (0.2-1.2) % Lymph # (Auto) (0.9-3.2) K/mm3 [place] # (Auto) (0.1-0.6) K/mm3 Eos # (Auto) (0-0.3) K/mm3 Baso # (Auto) (0.0-0.1) K/mm3 Abs Immat Gran (auto) (0.00-0.031) K/mm3 Absolute Neuts (auto) (1.3-6.7) K/mm3 Absolute Nucleated RBC (0.0-0.012) K/mm3 Band Neutrophils % Nucleated RBC % (0.0-0.2) % Platelet Estimate (Adequate) Hypochromasia Anisocytosis Microcytosis (NORMAL) Ovalocytes Schistocytes Sodium Potassium Chloride Carbon Dioxide Anion Gap BUN Creatinine Estim Creat Clear Calc Estimated GFR Glucose Calcium Magnesium (1.6-2.3) mg/dL Total Bilirubin AST ALT Alkaline Phosphatase 82 Total Protein Cancelled 7.4 Albumin Cancelled 3.8 Discharge Plan Discharge Clinical Impression: Suspected COVID-19 virus infection, Shortness of breath Patient Disposition: Home Condition: Improved Instructions: Antibiotic Form, Upper Respiratory Infection (ED) Additional Instructions: Please follow-up with family doctor within the next 3-5 days. Return to emergency department any new or worsening symptoms develop. Take the prescribed Z-Migel as instructed. Patient Language: [place]ol[place] Prescriptions: New azithromycin 250 mg tablet See Rx Instructions .ROUTE .COMPLEX Qty: 6 0RF Rx Instructions: For 250 mg dose pack: take 500 mg today (day 1), then 250 mg for 4 days (days 2-5) No Action prenat.vits,desirae,[id number] Tablet 1 tablet PO DAILY hydrocodone-acetaminophen 5-325 mg tablet 1 - 2 tablet PO Q4H PRN (Reason: pain) Qty: 25 0RF Follow-up/Referrals: Harms,Man Jack M.D. [Primary Care Provider] - 3 Days Time of Disposition: 21:17
[2025-02-16 21:38] VITALS: BP 148/68; PULSE 69; RESP 18; O2SAT 99
== END 2025-02-16 21:38 | disposition home or self-care (01) ==
PROVIDERS: Emergency Provider Emergency Medicine; PCP Family Medicine
DX: R06.02 Shortness of breath (principal); R94.31 Abnormal electrocardiogram [ECG] [EKG]; Z20.822 Contact with and (suspected) exposure to COVID-19
CPT/HCPCS: 36415; 71046; 80053; 83735; 85025; 93005; 99284